=== PATIENT | female | born 1980 | race Caucasian/White ===

== ENCOUNTER 2016-10-06 15:34 | Inpatient (IN) | payer OTHER ==
[~2016-10-06] VITALS: Ht 162.6 cm; Wt 97.8 kg
[2016-10-06 16:53] VITALS: Ht 162.6 cm; Wt 97.8 kg
[2016-10-06] MEDS ORDERED: DOCO1CAP10 PO (17:10)
[2016-10-06] MEDS ORDERED: ALBU18002 XX (17:10)
[2016-10-06] MEDS ORDERED: DOCU-94 PO (17:10)
[2016-10-06] MEDS ORDERED: DIPH25CA65 PO (17:10)
[2016-10-06] MEDS ORDERED: FERR27TA5 PO (17:10)
[2016-10-06] MEDS ORDERED: PRENTAB26 PO (17:10)
[2016-10-06] MEDS ORDERED: LACTATED RINGER'S 1000ML 1,000 ML IV SCH (18:37)
[2016-10-06] MEDS ORDERED: LACTATED RINGER'S 1000ML 1,000 ML IV PRN (18:37)
[2016-10-06] MEDS ORDERED: BUTORPHANOL TARTRATE 1 MG/ML VIAL IV ONE (18:45)
[2016-10-06 18:54] LABS: HEMATOCRIT 35.5 % (37-47); MEAN CELL VOLUME 82.9 fL (80-100); MEAN CORPUSCULAR HEMOGLOBIN 28.7 pg (25-34); MEAN CORPUSCULAR HGB CONC 34.6 g/dl (32-36); MEAN PLATELET VOLUME 9.9 fL (7.4-10.4); PLATELET COUNT 196 K/uL (130-400); RED BLOOD COUNT 4.28 M/uL (4.2-5.4); WHITE BLOOD COUNT 14.04 K/uL (4.8-10.8)
[2016-10-06] MEDS ORDERED: PENICILLIN G POTASSIUM IV 6 MU in DEXTROSE 5% 250ML 250 ML IV ONE (19:00)
--- NOTE | 2016-10-06 19:13 | HISTORY & PHYSICAL EXAMINATION ---
DATE OF ADMISSION: 10/06/2016 LABOR AND DELIVERY ADMISSION HISTORY AND PHYSICAL CHIEF COMPLAINT: Contractions. HISTORY OF PRESENT ILLNESS: The patient is a 36-year-old G2, P0-0-1-0 at 39 weeks and 4 days of gestation who has been feeling contractions since this morning, they were every 7 minutes until 1:00 p.m., when they become more regular every 4-5 minutes, she presented to labor and delivery around 4:00 p.m. when her cervix was checked by myself, it was 1-2 cm, 50%, minus 3. She was having contractions every 3-5 minutes. She was observed for 2 hours and her cervix was checked by myself. She changed her cervix to 3 cm, 60%, minus 3 with bulging membranes. She has been feeling more contractions and they are more painful. She rates her pain 9/10 and she is asking for pain medication. She is being admitted now. She denies any leakage of fluid or vaginal bleeding. She denies fever, chills, chest pain, shortness of breath, headache, change in her vision, nausea, or vomiting. Her has been complicated by: 1. Rh negative. She received RhoGAM at 28 weeks. 2. GBS positive. PAST MEDICAL HISTORY: Fibromyalgia, she has been off medications since this ; vitamin D insufficiency and history of migraines and history of depression in the past, no medications for about 10 years and history of seasonal allergies. PAST SURGICAL HISTORY: Tonsillectomy and a foot surgery as a child. ALLERGIES: MONIK FLAVOR, SHELLFISH ALLERGY, IMITREX, AND IODINE. MEDICATIONS: vitamins once a day, iron gluconate once a day, Benadryl 25 mg as needed for itching, Tylenol 500 mg as needed for pain, pseudoephedrine 30 mg as needed for congestion. SOCIAL HISTORY: The patient denies smoking, alcohol or drug use. GYNECOLOGIC HISTORY: The patient has a history of chlamydia in the past treated and was negative during this . No history of gonorrhea, trichomoniasis or herpes. OBSTETRICAL HISTORY: This is her second . She miscarried in December 2015, 6 weeks. LABS: Her blood type is O negative, antibody screen positive, positive anti-D from RhoGAM, H\T\H is 12/36 and GC chlamydia cultures were negative. Rubella positive. RPR nonreactive. Hepatitis B surface antigen negative. First trimester screening was negative and second trimester AFP was negative. One hour Glucola was 106 mg per deciliter. Repeat H\T\H was and GBS culture was positive on 09/08/2016. PHYSICAL EXAMINATION: GENERAL: The patient is alert, oriented x3. She is in moderate distress with contractions. VITAL SIGNS: Stable, afebrile. CARDIOVASCULAR SYSTEM: S1, S2, RRR. LUNGS: Clear to auscultation bilaterally. ABDOMEN: Soft, gravid, Jordon 7-1/2 to 8 pounds. EXTREMITIES: Nontender and mild pretibial edema bilaterally symmetric. PELVIC: Cervix is 3 cm dilated, 60% effaced, minus 3 with bulging membranes, vertex presentation. heart rate 140s, category 1. Tocometer contractions every 2-5 minutes. ASSESSMENT AND PLAN: The patient is a 36-year-old G2, P0-0-1-0 at 39 weeks and 4 days of gestation presenting with regular contractions and desires pain medications and she changed her cervix during observation here. Her vital signs stable, afebrile. heart rate reassuring. GBS positive. Plan is to admit her, start IV fluids, start IV penicillin and expecting management for now. All questions were answered. SALVADORD
[2016-10-06] MEDS ORDERED: BUTORPHANOL TARTRATE 1 MG/ML VIAL ONE (21:51)
[2016-10-06] MEDS: PENICILLIN G POTASSIUM IV 3 MU in DEXTROSE 5% 100ML 100 ML IV PRN (22:53)
[2016-10-07] VITALS (13 sets, daily range): BP systolic 103–128; BP diastolic 55–76; PULSE 76–102; TEMP 36.6–36.9; O2SAT 16–97
[2016-10-07] MEDS ORDERED: BUPIVACAINE 0.25% 30 ML VIAL ONE (00:25)
[2016-10-07] MEDS ORDERED: FENTANYL CITRATE INJ 50 MCG/1 ML 2 ML VIAL ONE (00:25)
[2016-10-07] MEDS ORDERED: EpHEDrine SULFATE INJ 50 MG/ML AMP ONE (00:25)
[2016-10-07] MEDS ORDERED: FENTANYL 2MCG/ML ROPIV 1.25MG/ML 100ML BAG EPI ONE (00:25)
[2016-10-07] MEDS ORDERED: EpHEDrine SULFATE INJ 50 MG/ML AMP IV PRN ×2 (01:15→08:45)
[2016-10-07] MEDS ORDERED: NALOXONE HCL INJ 0.4 MG/1 ML VIAL/CARP IV PRN (01:15)
[2016-10-07] MEDS ORDERED: ONDANSETRON INJ 2 MG/ML 2 ML VIAL IV PRN ×2 (01:15→08:45)
[2016-10-07] MEDS ORDERED: FENTANYL 2MCG/ML ROPIV 1.25MG/ML 100ML BAG EPI PRN (01:15)
[2016-10-07] MEDS ORDERED: PROMETHAZINE HCL INJ 25 MG in SODIUM CHLORIDE 0.9% 50ML 50 ML IV PRN (01:15)
[2016-10-07] MEDS ORDERED: NALBUPHINE HCL INJ 10 MG/ML AMP IV PRN ×2 (01:15→08:45)
[2016-10-07] MEDS ORDERED: DiphenhydrAMINE HCL 50 MG/ML VIAL IV PRN ×2 (01:15→08:45)
[2016-10-07] MEDS ORDERED: LACTATED RINGER'S 1000ML 500 ML IV PRN ×3 (01:15→08:38)
[2016-10-07] MEDS ORDERED: NALOXONE HCL INJ 1 MG in SODIUM CHLORIDE 0.9% 1000ML 1,000 ML IV PRN ×5 (01:15→08:38)
[2016-10-07] MEDS: PENICILLIN G POTASSIUM IV 3 MU in DEXTROSE 5% 100ML 100 ML IV PRN ×2 (03:09→06:29)
[2016-10-07] MEDS ORDERED: OXYTOCIN 30 UNITS/500ML NSS IV PRN (06:30)
[2016-10-07] MEDS ORDERED: CITRIC ACID/SODIUM CITRATE 15 ML UDC ONE (06:43)
[2016-10-07] MEDS ORDERED: CEFAZOLIN SOD 1000MG/55 ML D5W IV STA (06:57)
[2016-10-07] MEDS ORDERED: CEFAZOLIN SOD 2000 MG in DEXTROSE 5% 50ML IV ONE (07:15)
[2016-10-07] MEDS ORDERED: LIDOCAINE/EPINEPHRINE 2% 1:200,000 20 ML SDV ONE (07:27)
[2016-10-07] MEDS ORDERED: ONDANSETRON INJ 2 MG/ML 2 ML VIAL ONE (07:27)
[2016-10-07] MEDS ORDERED: MoRPHine SULFATE PF 1 MG/ML 10 ML AMP/VIAL ONE (07:28)
[2016-10-07] MEDS ORDERED: PHENYLEPHRINE 100MCG/ML 5ML SYR ONE (07:31)
[2016-10-07] MEDS ORDERED: NALOXONE HCL INJ 0.08 MG in SYRINGE 1.8 ML IV PRN (08:38)
[2016-10-07] MEDS ORDERED: SODIUM CHLORIDE 0.9% 1000ML 1,000 ML IV PRN (08:38)
--- NOTE | 2016-10-07 08:38 | Anesthesia Procedure Note ---
Anesthesia Epidural Removal Nt Date & Time Oct 07, 2016 at 08:37 Vital Signs Pain Intensity: 9.0 Notes Mental Status: alert / awake / arousable, participated in evaluation Nausea / Vomiting: adequately controlled Pain: adequately controlled Airway Patency, RR, SpO2: stable & adequate BP & HR: stable & adequate Hydration State: stable & adequate Neuraxial Anesthesia: was administered Anesthetic Complications: no major complications apparent, pt satisfied with anesthetic care Epidural: removed without complications, with tip intact
[2016-10-07] MEDS ORDERED: NO NARCOTICS OR SEDATIVES SCH (08:45)
[2016-10-07] MEDS ORDERED: MoRPHine SULFATE PF 1 MG/ML 10 ML AMP/VIAL EPI PRN (08:45)
[2016-10-07] MEDS ORDERED: DC INTRASPINAL MORPHINE SCH (08:45)
[2016-10-07] MEDS ORDERED: NALOXONE HCL 0.4 MG/1 ML VIAL/CARP IV PRN (08:45)
[2016-10-07] MEDS ORDERED: MoRPHine SULFATE 2 MG/ML CARP IV PRN (08:45)
[2016-10-07] MEDS ORDERED: SENNA 8.6 MG TAB PO PRN (09:00)
[2016-10-07] MEDS ORDERED: LANOLIN OINT EXT PRN ×2 (09:00)
[2016-10-07] MEDS ORDERED: MAGNESIUM HYDROXIDE SUSP 30 ML UDC PO PRN (09:00)
[2016-10-07] MEDS ORDERED: SUPERCREAM 0.870 % 15GM JAR EXT PRN (09:00)
[2016-10-07] MEDS ORDERED: BENZOCAINE 20% AER SPR 82.5 GM CAN EXT PRN (09:00)
[2016-10-07] MEDS ORDERED: HYDROCORTISONE ACETATE 25 MG SUPP PR PRN (09:00)
[2016-10-07] MEDS: OXYTOCIN INJ 20 UNITS in LACTATED RINGER'S 1000ML 1,000 ML IV SCH ×2 (09:44→20:14)
--- NOTE | 2016-10-07 10:20 | [facility] Post Operative Brief Note ---
Immediate Operative Summary Operative Date Oct 07, 2016. Pre-Operative Diagnosis Prolonged Decelerations;Remote from delivery Post-Operative Diagnosis Same Procedure(s) Performed Primary Caesarean Section; Delivery of a live female child at [address] Kate Business Process Coordinator Surgeon(s) Dr. Amin; Irma Ramachandran RN Estimated Blood Loss 600 cc Findings Viable female infant, Apgars 9/9 Specimens placenta-exam cord blood arterial and venous gases Anesthesia epidural Complication(s) None Disposition L&D
--- NOTE | 2016-10-07 10:52 | OPERATIVE REPORT ---
DATE OF OPERATION: 10/07/2016 NOTE PREOPERATIVE DIAGNOSIS: The patient is a 36-year-old G2, P 0-0-1-0, at 39 weeks and 4 days of gestation, in active labor, meconium-stained amniotic fluid , recurrent prolonged heart rate decelerations and remote from delivery. POSTOPERATIVE DIAGNOSIS: Same. PROCEDURE: Primary low transverse with Pfannenstiel skin incision. SURGEON: Dr. Foss. SENIOR INSTRUMENTATION ENGINEER: Dr. Amin; Ariana Ramachandran RN. ESTIMATED BLOOD LOSS: 600 FLUIDS: See anesthesiology record. Urine output 100. ANESTHESIA: Epidural. COMPLICATIONS: None. FINDINGS: Baby was a viable female infant, Apgars 9/9, delivered at 0717. Weight 2745 grams. Normal uterus, fallopian tubes and ovaries. INDICATIONS: The patient is a 36-year-old G2, P 0-0-1-0, at 39 weeks and 4 days of gestation, who was admitted on 10/06/2016 for labor. She progressed to 5 cm dilatation whens she saw AROM'ed and found to have meconium stained fluid. heart tracings with recurrent prolonged decelerations to 60s-70s and remote from delivery. She was discussed the findings and recommended imminent delivery of the baby with section. She understood the risks of bleeding, infection, injury to the surrounding organs, bowels, bladder, ureters, blood transfusion and postop blood clots in legs or lungs, adhesion and scar formation. She signed an informed consent. DETAILS OF PROCEDURE: The patient was taken to the operating room where anesthesia was found to be adequate. She was placed in dorsal supine position with a leftward tilt. She was prepared and draped in usual sterile fashion. A Pfannenstiel skin incision was made, carried to the underlying layer of fascia with Bovie. The fascia was incised in the midline and incision extended laterally with the help of Newby scissors. Upper aspect of the fascial incision was then grasped with 2 Guru clamps, elevated. Underlying rectus muscles were dissected off sharply with Newby scissors. Then, lower aspect of the fascial incision was then grasped with 2 Gruu clamps, elevated. Underlying rectus muscles were dissected off sharply with Newby scissors. Rectus muscles were in midline, incision extended, and the peritoneum was entered bluntly with fingers. Peritoneal incision was extended superiorly and inferiorly with good visualization of the bladder. Bladder blade was inserted. Vesicouterine peritoneum was identified, grasped with pickups, entered sharply with Metzenbaum scissors. Bladder flap was created digitally and bladder blade was reinserted. Lower uterine segment was incised in a transverse fashion, incision extended laterally with the help of fingers, and then baby's head was delivered without difficulty. Shoulders were delivered with minimal traction. Mouth and nose were suctioned. Cord was clamped x2 and cut, it was a 3-vessel cord. Baby was handed off to the waiting circulation tender, Dr. Paul. Placenta was exteriorized, cleared off all clots and debris. Uterine incision was repaired with 0 Vicryl in a running locked fashion. A second imbricating layer was placed with 0 Vicryl in a running fashion. Good hemostasis was achieved. Uterus was returned to the abdomen and pelvis was irrigated with warm normal saline and suctioned. Incision was checked to be again hemostatic. Parietal peritoneum was reapproximated with 3-0 Vicryl in a running fashion. Rectus muscles were reapproximated with the same suture in a running fashion. Rectus fascia was reapproximated with 0 Vicryl in a running fashion. Subcuticular fat tissue was reapproximated with 2-0 chromic catgut in a running fashion. Skin was closed in marciano. The patient tolerated the procedure well. Sponge, lap, needle counts were correct x3. She was given 2 grams of cefazolin before surgery. She was taken to recovery room in stable condition. I attest to the content of the Intraoperative Record and any orders documented therein. Any exceptions are noted below. AMILCAR
[2016-10-07] MEDS: SIMETHICONE 80 MG CHEW PO SCH ×3 (12:57→20:14)
[2016-10-07] MEDS: KETOROLAC TROMETHAMINE 30 MG/ML VIAL IV. PRN ×2 (16:41→22:38)
[2016-10-07] MEDS ORDERED: LACTATED RINGER'S 1000ML 1,000 ML IV SCH (18:00)
[2016-10-07] MEDS: DOCUSATE SODIUM 100 MG CAP PO SCH (20:14)
[2016-10-08 00:30] VITALS: O2SAT 95
[2016-10-08] MEDS ORDERED: MEPERIDINE HCL 50 MG/ML CARP IV PRN (01:00)
[2016-10-08] MEDS ORDERED: KETOROLAC TROMETHAMINE 30 MG/ML VIAL IV. PRN (01:00)
[2016-10-08] MEDS ORDERED: PROMETHAZINE HCL INJ 25 MG in SODIUM CHLORIDE 0.9% 50ML 50 ML IV PRN (01:00)
[2016-10-08] MEDS ORDERED: DiphenhydrAMINE HCL 50 MG/ML VIAL IV PRN (01:00)
[2016-10-08] MEDS ORDERED: ONDANSETRON INJ 2 MG/ML 2 ML VIAL IV PRN (01:00)
[2016-10-08] MEDS ORDERED: MEPERIDINE HCL 75 MG/ML CARP IV PRN (01:00)
[2016-10-08 04:30] VITALS: BP 100/69; PULSE 96; TEMP 37; O2SAT 98
[2016-10-08 07:49] LABS: BASO % 0.1 %; BASO ABS # 0.01 K/uL (0-0.2); COMPLETE YES; EOS % 0.4 %; HEMATOCRIT 27.2 % (37-47); IG% 0.6 %; LYMPH ABS # 1.47 K/uL (1.2-3.4); MEAN CELL VOLUME 85.3 fL (80-100); MEAN CORPUSCULAR HEMOGLOBIN 28.5 pg (25-34); MEAN CORPUSCULAR HGB CONC 33.5 g/dl (32-36); MEAN PLATELET VOLUME 9.9 fL (7.4-10.4); MONO % 5.6 %; NEUT % 81.3 %; PLATELET COUNT 148 K/uL (130-400); RED BLOOD COUNT 3.19 M/uL (4.2-5.4); WHITE BLOOD COUNT 12.24 K/uL (4.8-10.8)
--- NOTE | 2016-10-08 08:01 | Surgery Progress Note ---
Surgery Progress Note Date of Service Oct 08, 2016. Subjective Post OP Day: 1 + ambulating, + diet (Tplerating Po food and meds), + feeling well, + flatus, + pain controlled, No SOB, No bowel movement, No chest pain, No complaints, No nausea, No using ENTRY LEVEL ACCOUNT MANAGER, No vomiting Objective Vital Signs: Date Time Temp Pulse Resp B/P Pulse Ox O2 Delivery O2 Flow Rate FiO2 10/08/16 04:30 20 98 10/08/16 04:30 37.0 96 20 100/69 98 Room Air 10/08/16 00:30 18 95 10/07/16 23:00 18 95 10/07/16 23:00 36.9 101 18 107/70 95 Room Air 10/07/16 23:00 95 Room Air 10/07/16 22:15 20 96 10/07/16 21:30 18 96 10/07/16 20:30 18 97 10/07/16 19:50 18 97 10/07/16 19:50 36.8 102 18 128/70 97 Room Air 10/07/16 18:30 18 94 10/07/16 17:30 16 96 10/07/16 16:30 18 96 10/07/16 16:30 36.6 88 18 118/76 96 Room Air 10/07/16 16:30 96 Room Air 10/07/16 15:30 18 94 10/07/16 13:30 96 16 10/07/16 12:30 95 16 10/07/16 11:30 96 16 10/07/16 11:30 36.7 76 20 103/55 96 Room Air 10/07/16 11:25 96 Room Air General Appearance: WD/WN, no apparent distress Head: normocephalic, atraumatic Neck: supple, no adenopathy, thyroid normal, no JVD, no carotid bruits, trachea midline Respiratory/Chest: chest non-tender, lungs clear, normal breath sounds, no respiratory distress, no accessory muscle use Cardiovascular: regular rate, rhythm, no edema, no gallop, no JVD, no murmur Abdomen: normal bowel sounds, non tender, non distended, soft, no organomegaly , no pulsatile mass Incision(s): clean, dry, intact, no erythema, no drainage Extremities: normal range of motion, non-tender, normal inspection, no pedal edema, no calf tenderness, normal capillary refill, pelvis stable Laboratory Results: Results Past 24 Hours Test 10/08/16 06:14 Range/Units White Blood Count 12.24 4.8-10.8 K/uL Red Blood Count 3.19 4.2-5.4 M/uL Hemoglobin 9.1 12.0-16.0 g/dL Hematocrit 27.2 37-47 % Mean Corpuscular Volume 85.3 80-100 fL Mean Corpuscular Hemoglobin 28.5 25-34 pg Mean Corpuscular Hemoglobin Concent 33.5 32-36 g/dl Platelet Count 148 130-400 K/uL Mean Platelet Volume 9.9 7.4-10.4 fL Neutrophils (%) (Auto) 81.3 % Lymphocytes (%) (Auto) 12.0 % Monocytes (%) (Auto) 5.6 % Eosinophils (%) (Auto) 0.4 % Basophils (%) (Auto) 0.1 % Neutrophils # (Auto) 9.96 1.4-6.5 K/uL Lymphocytes # (Auto) 1.47 1.2-3.4 K/uL Monocytes # (Auto) 0.68 0.11-0.59 K/uL Eosinophils # (Auto) 0.05 0-0.5 K/uL Basophils # (Auto) 0.01 0-0.2 K/uL RDW Standard Deviation 47.0 36.4-46.3 fL RDW Coefficient of Variation 15.1 11.5-14.5 % Immature Granulocyte % (Auto) 0.6 % Immature Granulocyte # (Auto) 0.07 0.00-0.02 K/uL Assessment & Plan c/sec day #1 pt doing well continue day #1 care
[2016-10-08] MEDS ORDERED: IBUPROFEN 600 MG TAB ONE (08:11)
[2016-10-08] MEDS ORDERED: NURSING VERBAL MED ORDER ONE (08:15)
[2016-10-08 08:25] VITALS: BP 121/79; PULSE 100; TEMP 36.8; O2SAT 95
[2016-10-08] MEDS: OXYCODONE/ACETAMINOPHEN 5-325 TAB PO PRN ×4 (08:26→21:39)
[2016-10-08] MEDS: FERROUS SULFATE 325 MG TAB PO SCH (08:27)
[2016-10-08] MEDS: DOCUSATE SODIUM 100 MG CAP PO SCH ×2 (08:27→19:47)
[2016-10-08] MEDS: SIMETHICONE 80 MG CHEW PO SCH ×4 (08:27→19:47)
[2016-10-08] MEDS: PRENATAL VITAMIN TAB PO SCH (08:27)
[2016-10-08] MEDS ORDERED: MEASLES, MUMPS & RUBELLA VIRUS VIAL SQ. ONE (09:00)
[2016-10-08] MEDS ORDERED: DIPHTHERIA/TETANUS/PERTUSSIS 0.5 ML SYR/VIAL IM. ONE (09:00)
[2016-10-08] MEDS: IBUPROFEN 600 MG TAB PO PRN ×3 (12:42→21:39)
[2016-10-08 16:45] VITALS: BP 122/75; PULSE 100; TEMP 36.5; O2SAT 97
[2016-10-08] MEDS ORDERED: BISACODYL 5 MG TABEC PO ONE (22:00)
[2016-10-08 23:45] VITALS: BP 126/84; PULSE 101; TEMP 36.6
[2016-10-09] MEDS: IBUPROFEN 600 MG TAB PO PRN ×5 (05:30→23:58)
[2016-10-09] MEDS: OXYCODONE/ACETAMINOPHEN 5-325 TAB PO PRN ×5 (05:30→23:58)
[2016-10-09 06:56] LABS: HEMATOCRIT 26.2 % (37-47)
[2016-10-09 08:00] VITALS: BP 129/85; PULSE 90; TEMP 36.7; O2SAT 96; O2SAT 97
[2016-10-09] MEDS: DOCUSATE SODIUM 100 MG CAP PO SCH ×2 (08:16→20:00)
[2016-10-09] MEDS: PRENATAL VITAMIN TAB PO SCH (08:16)
[2016-10-09] MEDS: FERROUS SULFATE 325 MG TAB PO SCH (08:16)
[2016-10-09] MEDS: SIMETHICONE 80 MG CHEW PO SCH ×4 (08:17→20:01)
[2016-10-09] MEDS ORDERED: BISACODYL 10 MG SUPP PR PRN (09:00)
--- NOTE | 2016-10-09 09:29 | Surgery Progress Note ---
Surgery Progress Note Date of Service Oct 09, 2016. Subjective Post OP Day: 2 + ambulating, + diet (Tolerating Po food and meds), + feeling well, + flatus, + pain controlled, No SOB, No bowel movement, No chest pain, No complaints, No nausea, No using ZIPPER REPAIRER, No vomiting Objective Vital Signs: Date Time Temp Pulse Resp B/P Pulse Ox O2 Delivery O2 Flow Rate FiO2 10/09/16 08:00 97 Room Air 10/09/16 08:00 36.7 90 16 129/85 96 Room Air 10/08/16 23:45 36.6 101 18 126/84 Room Air 10/08/16 23:45 Room Air 10/08/16 16:45 36.5 100 18 122/75 97 Room Air 10/08/16 16:45 97 Room Air General Appearance: WD/WN, no apparent distress Head: normocephalic, atraumatic Neck: supple, no adenopathy, thyroid normal, no JVD, no carotid bruits, trachea midline Respiratory/Chest: chest non-tender, lungs clear, normal breath sounds, no respiratory distress, no accessory muscle use Cardiovascular: regular rate, rhythm, no edema, no gallop, no JVD, no murmur Abdomen: normal bowel sounds, non tender, non distended, soft, no organomegaly , no pulsatile mass Incision(s): clean, dry, intact, no erythema, no drainage Extremities: normal range of motion, non-tender, normal inspection, no pedal edema, no calf tenderness, normal capillary refill, pelvis stable Laboratory Results: Results Past 24 Hours Test 10/09/16 06:03 Range/Units Hemoglobin 8.7 12.0-16.0 g/dL Hematocrit 26.2 37-47 % Assessment & Plan c/sec day #2 pt doing well continue day #2 care disch tomorrow c/sec day #2 pt doing well anticipate disch tomorrow
[2016-10-09 15:20] VITALS: BP 125/84; PULSE 89; TEMP 36.5
--- NOTE | 2016-10-09 18:33 | Progress Note ---
Progress Note S: Called to evaluate pt with "Redness around incision". no chills , No fever O; VSS afebrile Lung CTA bilat Ht; Si S@ R?R/R ABD; + BS. Incison is erythematous. Ext;No C/C/E A/p s/p Emergent c/sec for bradycardia Day #2 Afebrile X 2 days post op cellulitis Rx for Keflex started
[2016-10-09 19:35] VITALS: BP 130/84; PULSE 83; TEMP 36.6; O2SAT 98
[2016-10-09] MEDS: CEPHALEXIN MONOHYDRATE 500 MG CAP PO SCH (20:01)
[2016-10-09 23:20] VITALS: BP 133/86; PULSE 82; TEMP 36.6; O2SAT 98
[2016-10-10 03:55] VITALS: BP 126/86; PULSE 80; TEMP 36.4; O2SAT 98
[2016-10-10] MEDS: IBUPROFEN 600 MG TAB PO PRN ×3 (03:55→11:51)
[2016-10-10] MEDS: OXYCODONE/ACETAMINOPHEN 5-325 TAB PO PRN ×3 (03:55→11:50)
[2016-10-10] MEDS ORDERED: KFL500 PO (07:12)
[2016-10-10] MEDS ORDERED: OXYC-57 PO (07:12)
[2016-10-10] MEDS ORDERED: MTR600X PO (07:12)
--- NOTE | 2016-10-10 07:18 | Discharge Instructions ---
Discharge Instructions Admission Reason for Admission: Check Labor Discharge Discharge Diagnosis / Problem: s/p section Discharge Goals Goal(s): Routine recovery after Activity Recommendations Activity Limitations: per Instructions/Follow-up section . Instructions / Follow-Up Instructions / Follow-Up ACTIVITY RECOMMENDATIONS: * Gradual return to full activity over the next 2-3 weeks. * No lifting - nothing heavier than baby over the next 2-3 weeks. * Do not engage in vigorous exercise, sexual activity or sports until cleared by your physician. * Do not drive or operate any motorized equipment until cleared by your physician. * You may shower/bathe daily. BREAST CARE: If you are not breast feeding: * Wear a supportive bra 24 hours a day for one to two weeks. * Avoid stimulating your breasts and nipples as much as possible during the first few weeks after delivery. * When taking a shower, have the warm water hit your back, not breasts. * When your breasts feel full, apply ice packs. Usually three to four times a day helps ease the discomfort. * Take a mild pain medication (Tylenol/Motrin) when you are uncomfortable. If breast feeding: * Use breast milk to lubricate nipples. Lansinoh cream may be used for sore nipples. You do not need to remove cream prior to breast feeding. If using a different brand of cream, check the label for directions regarding removal of cream prior to nursing. * Wear a supportive bra. * If having problems with breasts or breast feeding, call a strategic sourcing consultant or your health care provider. OVER THE COUNTER MEDICATION: * For discomfort or pain, you may use Acetaminophen (Tylenol), Ibuprofen (Advil ), or Naproxen (Aleve) following the package directions. * For constipation you may use Colace following the package directions. SPECIAL CARE INSTRUCTIONS: When you are discharged from the hospital, it is important for you to follow the instructions listed below: * During the first week at home, you should be able to care for yourself and your baby. In addition, the usual light household activities are encouraged. * Limit your activities to the way you feel. Do not try to clean the house or move furniture. Be sensible. * If you actively engage in sports and have done so up until the time of your delivery, you may resume these activities as soon as you feel able. This may take up to one month or even longer. Use good judgment. * Continue to take your vitamins for at least six weeks after the of your baby. * Your diet need not be limited unless you were on a special diet before your delivery. Breast-feeding mothers need around 2500 calories per day and at least 64-80 ounces of fluid per day (8 to 10 glasses). * You should eat foods from the four major food groups. Crash diets or fad diets are to be avoided. Eating lean meats, fresh fruits and vegetables, low-fat dairy products, high fiber foods and a regular exercise program, will help you get back to your pre- weight without putting your health at risk. * Constipation is sometimes a problem after delivery. Take a mild laxative as needed. If breast feeding, Milk of Magnesia is acceptable to use. You may use a suppository or Fleets enema if no episiotomy. * A daily shower or tub bath is suggested. Be sure to thoroughly and gently dry the perineum. * A bloody vaginal discharge will usually continue until around four weeks post . A small amount of bleeding may continue for as long as six weeks. Vaginal discharge changes from the bright red bleeding after delivery to pink then brownish and finally yellowish-pink before becoming white and disappearing. * Bleeding may increase with activity. Your first period may come in 4-8 weeks. If you are breast feeding, your period may be delayed even longer. * [place] (sex) can begin whenever both you and your partner feel comfortable and do not have any form of genital infection. It is recommended that you wait at least six weeks for internal and external healing to occur. If you have questions, please talk to your health care practitioner. A condom should be used to prevent infection and . * Foreplay, gentle intercourse and lubrication is very important the first several times to prevent pain. A water-based lubricant such as K-Y jelly or Astroglide may be used. * Tampons and/or Douching should be avoided until after six weeks check-up. * If you have RH negative blood and your baby is RH positive, you will receive RHOGAM by injection prior to discharge. The nurse will give you a card to keep with you that has the date and place that you received RHOGAM after delivery. * During your care, you had a Rubella screen done to check for the presence of rubella antibodies in your blood. If your test was negative, you will receive a Rubella vaccine prior to discharge. This vaccine may cause a fever, soreness at the injection site and flu-like symptoms. If these symptoms persist, notify your health care practitioner. is not advised for three months after a Rubella vaccine. * Verbalizes understanding of car seat law as reviewed with patient nursing. * Car Seat hand-out given and reviewed with patient by nursing. * Shaken baby information reviewed with patient by nursing. Call you doctor if: * Heavy bleeding (saturating several pads an hour) or passing clots the size of your fist. * A fever >101 degrees F (38.3 degrees C) on two occasions four hours apart and /or chills. * Unusual pain in the pelvic or vaginal areas. Pain should improve each day . * Call the doctor for any increased redness, drainage or swelling around the incision and any pain unrelieved by prescribed pain medication. * Any signs or symptoms of phlebitis (possible blood clots forming in the veins ): leg pain, warm, red or swollen area on leg. * "Baby Blues" lasting longer than two weeks. If you have any questions or concerns, call your health care practitioner at . FOLLOW-UP VISIT: * Incision check (staple removal) in 1 week. Please call doctor's office at to set up appointment. * Please call the office at to schedule a 6 week examination. It is important you keep this appointment. * It is important for you to make arrangements for either yearly or twice yearly check-ups thereafter. Current Hospital Diet Patient's current hospital diet: Regular OB Diet Discharge Diet Recommended Diet: Regular OB Diet Procedures Procedures Performed: Primary Caesarean Section; Delivery of a live female child at 0717 Pending Studies Studies pending at discharge: no Medical Emergencies . Who to Call and When: Medical Emergencies: If at any time you feel your situation is an emergency, please call [phone] immediately. . Non-Emergent Contact Non-Emergency issues call your: Primary Care Provider, Foundry Tender . . "Provider Documentation" section prepared by Vince Markham. VTE Core Measure Inpt VTE Proph given/why not?: Treatment not indicated
--- NOTE | 2016-10-10 07:21 | OB/GYN Progress Note ---
DENTAL CERAMIST Progress Note Date of Service Oct 10, 2016. Subjective conversation w/ patient Ambulation: ambulating normally Voiding: no voiding problems Passing Gas: Yes Diet Tolerance: Regular Diet Lochia: Small Pain: 12/09 Notes: Doing well, no concerns. Would like to go home today. Was started on keflex yesterday for possible cellulitis of incision and has been stable. Will continue with oral keflex at home. F/u in 1 week for incision check. Objective Vital Signs Date Time Temp Pulse Resp B/P Pulse Ox O2 Delivery O2 Flow Rate FiO2 10/10/16 03:55 36.4 80 16 126/86 98 Room Air 10/09/16 23:20 98 Room Air 10/09/16 23:20 36.6 82 20 133/86 98 Room Air 10/09/16 19:35 36.6 83 20 130/84 98 Room Air 10/09/16 15:20 36.5 89 20 125/84 10/09/16 08:00 97 Room Air 10/09/16 08:00 36.7 90 16 129/85 96 Room Air Physical Exam General Appearance: WELL-APPEARING Respiratory/Chest: chest non-tender, lungs clear Cardiovascular: regular rate, rhythm Abdomen: normal bowel sounds, soft Fundus: Firm Incision Description: Clean, Dry & Intact, Erythema Extremities: normal range of motion, non-tender, no calf tenderness Assessment and Plan Post-Op Day Number: 3 Continue Routine Care: -D/C home today -F/U in 1 week for incision check/staple removal.
[2016-10-10 07:30] VITALS: BP 125/86; PULSE 81; TEMP 36.3; O2SAT 97
[2016-10-10] MEDS: CEPHALEXIN MONOHYDRATE 500 MG CAP PO SCH ×2 (08:14→11:50)
[2016-10-10] MEDS: PRENATAL VITAMIN TAB PO SCH (08:14)
[2016-10-10] MEDS: SIMETHICONE 80 MG CHEW PO SCH ×2 (08:15→11:50)
[2016-10-10] MEDS: FERROUS SULFATE 325 MG TAB PO SCH (08:15)
[2016-10-10] MEDS: DOCUSATE SODIUM 100 MG CAP PO SCH (08:15)
[2016-10-10 11:40] VITALS: BP_DIAS 86; PULSE 81; TEMP 36.3
--- NOTE | 2016-10-21 02:23 | DISCHARGE SUMMARY ---
DETAILS OF ADMISSION: The patient is a 36-year-old G2, P0-0-1-0 at 39 weeks and 4 days of gestation who was admitted on 10/06/2016 for labor. She progressed to 5 cm dilatation spontaneously by herself. Artificial rupture of membranes was done and a meconium-stained fluid was observed. After that, heart rate was having recurrent prolonged decelerations to 60s-70s and the patient was remote from delivery. Recommended section for imminent delivery of the baby. She had primary low transverse with Pfannenstiel skin incision on 10/07/2016. Baby was delivered at 0717 and Apgars 9/9. See dictated op note for details. On postop period, the patient did well. Vital signs stable, afebrile. Urine output was good. Pain was under control with medications. On postop day #1, the patient was doing well, tolerating a regular diet, passing gas. Pain was under control with oral medications. Vital signs stable, afebrile. Urine output was good. Physical exam was unremarkable. Incision was clean, dry and intact. H\T\H was 9.1/27.2. The patient was continuously monitored. On postop day #2, the patient was doing well. She was on a regular diet, passing gas. Pain was under control with medications. Vital signs stable, afebrile. Incision was clean, dry and intact. H\T\H was 8.7/26.2. On postop day #3, the patient was doing well, no complaints. She wanted to go home. She was on a regular diet, ambulating, passing gas and she was started on Keflex for possible cellulitis of incision. She has been afebrile. Incision was clean, dry and intact with mild erythema. She was discharged home on 10/10/2016. Discharge instructions were given. Prescriptions were written for pain as well as antibiotic. She is to be follow up in the office in 3 days for staple removal and incision check. All questions were answered. AMILCAR
== END 2016-10-10 12:03 | disposition home or self-care (01) | DRG 766 ==
LOC: C.OPB 15:34 → C.LD 15:34 → C.OPB 18:38 → C.OBG 10-07 11:38
PROVIDERS: ADMIT Obstetrics & Gynecology; ATTEND Obstetrics & Gynecology
PROC: 10D00Z1 Extraction of Products of Conception, Low, Open Approach (ICD-10-PCS; principal; 2016-10-07 06:53)
DX: O76 Abnormality in fetal heart rate and rhythm complicating labor and delivery (principal); O99.89 Other specified diseases and conditions complicating pregnancy, childbirth and the puerperium; O99.820 Streptococcus B carrier state complicating pregnancy; Z37.0 Single live birth; Z3A.39 39 weeks gestation of pregnancy; M79.7 Fibromyalgia

== ENCOUNTER → 2017-04-07 | Outpatient (CLI) | payer OTHER ==
[~2017-04-07] MED LIST: ALBU18002 XX; DIPH25CA65 PO; DOCO1CAP10 PO; DOCU-94 PO; FERR27TA5 PO; KFL500 PO; MTR600X PO; OXYC-57 PO; PRENTAB26 PO
--- NOTE | 2017-04-08 05:45 | PAP/PSG TECHNICIAN REPORT ---
[facility] Chef Kitchen Manager Polysomnogram Report Study name: None Report date: 04/08/2017 Study date: 04/07/2017 Referring Physician: Freda Woodard M.D. Name: WYATT BROOKS Interpreting Physician: Sayda Woodard M.D. Date of : 1980 Chef Kitchen Manager: MONALISA Tracy. Sex: Female Age: 36 StudyType: PSG Weight: 211 lbs Height: 36 years, Height 5' 5" Neck Circum:15.5inches BMI: 35.11 Medications: Topamax 25mg, Midrin [id number], Claritin 10mg, Ativan 1mg, Flonase 50mcg/act, DHA 200mg, Probiotic, Tylenol, Colace, 27-1mg Patient History Study started on room air with no ETCO2 monitoring in room 38. 36 yr old female here tonight for a diagnostic psg. She complains of EDS and loud snoring. She said she has always required a lot of sleep. Her ESS=17/24. Neck circ=15.5inches. Parameters Monitored NPSG: E1-M2, E2-M1, Fp1-M2, Fp2-M1, F3-M2, F4-M2, F4-M1, C3-M2, C4-M2, C4-M1, O1-M2, O2-M2, O2-M1, T3-M2, T4-M1, P3-M2, P4-M1, CHIN1, CHIN2, HR, EKG, Legs, PFLOW, SNOR, FLOW, CFLOW, Tidal Volume, THOR, ABDO, SpO2, PLTH, CPRESS, ETCO2 Wave, ETCO2, pH Sleep Architecture Sleep Stages Time at Lights Off 10:00:42 PM STAGES Time (min.) TST (%) Time at Lights On 5:38:42 AM Wake 65.5 -- Total Recording Time (TRT) 458.00 min. N1 26.5 7 Total Sleep Period (TSP) 434.0 min. N2 219.5 56 Total Sleep Time (TST) 392.0min. N3 65.5 17 Awake Time 65.5 min. REM 80.5 21 Wake after Sleep Onset 42.0 min. Sleep Efficiency (SE) 86 % Sleep Onset Latency (MONTY) 24.0 min. Number of Stage 1 Shifts None Awakenings 18 Stage Changes 88 Number of REM periods 4 REM 80.5 21 REM Latency 195.5 min. NREM 311.5 79 Body Position Analysis Supine Right Left Side Prone Vertical Total Sleep Time (min.) 213.5 157.9 46.9 204.80 0.0 0.0 Total Sleep Time (%) 48% 40% 12% 52 0% N/A% Total Sleep Time REM (min.) 55.0 25.5 0.0 None 0.0 0.0 Total Sleep Time NREM (min.) 132.2 132.4 46.9 None 0.0 0.0 Intermittent Wake (min.) 26.3 19.4 19.8 None 0.0 0.0 Total Sleep Period (%) 46% None None None None None Arousals Myoclonus (PLM) * Events Count Index Events Count Index Spontaneous 18 3 Events Awake (PLMW) 48 44.0 Respiratory 0 0.0 Events Asleep w/ Arousal (PLMA) 10 1.5 PLM 10 2 Events Asleep w/o Arousal (PLMS) 33 5.1 Snoring 8 1 Total Asleep 43 6.6 Total 35 5 Total 91 12 Respiratory Analysis * CA OA MA CH H RERA Total Count 0 0 0 0 4 0 4 Index 0.0 0.0 0.0 0 0.6 0 0.6 Mean Duration 0.0 0.0 0.0 0.00 15.2 0.0 15.2 Longest Duration 0.0 0.0 0.0 0.00 0.0 0.0 21.7 Respiratory Event Summary Total Supine ~Supine Right Left Prone REM NREM Apneas Count 0 0 0 0 0 N/A 0 0 Index 0.0 0 0 0.0 0.0 N/A 0 0 Hypopneas (4% Desat) Count 4 1 3 3 0 N/A 1 3 Index 0.6 0.3 1 1.1 0.0 N/A 0.7 0.6 Apneas & All Hypopneas Count 4 1 3 3 0 N/A 1 3 Index 0.6 0 1 1 0 N/A 0.7 0.6 Respiratory Events (Missile Pad Mechanic+All Hyp+RERA) Count 4 1 3 3 0 N/A 1 3 Index 0.6 0 1 1.1 0.0 N/A 0.7 0.6 Respiratory Related Arousal Count 0 1 0 0 0 N/A 0 0 Index 0.0 0 0 0 0 N/A 0 0 Snoring Analysis Supine Right Left Prone REM NREM Total Snore duration 2.5 min Snores count 74 41 3 N/A 3 115 118 Snore mean duration 1.3 Sec Snores index 24 16 4 N/A 2.2 22.2 18.1 TST with snoring (%) 0.6% Desaturation Event Summary: Minimum %SpO2 Event Count Mean/Min/Max Duration(sec.) Desaturation Index % Time In Bed > 90 14 27.1 / 5.8 / 48.8 1.9 97.2 86 - 90 0 N/A 0.0 2.8 81 - 85 0 N/A 0.0 0.0 76 - 80 0 N/A 0.0 0.0 71 - 75 0 N/A 0.0 0.0 66 - 70 0 N/A 0.0 0.0 61 - 65 0 N/A 0.0 0.0 56 - 60 0 N/A 0.0 0.0 51 - 55 0 N/A 0.0 0.0 < 50 0 N/A 0.0 0.0 Total REM NREM Awake <50% 0.0 min. 0.0 min. 0.0 min. 0.0 min. 51 - 60% 0.0 min. 0.0 min. 0.0 min. 0.0 min. 61 - 70% 0.0 min. 0.0 min. 0.0 min. 0.0 min. 71 - 80% 0.0 min. 0.0 min. 0.0 min. 0.0 min. 81 - 90% 12.6 min. 4.9 min. 7.0 min. 0.6 min. 91 - 100% 437.3 min. 75.6 min. 304.5 min. 57.3 min. Average 93 93 93 94 Minimum SpO2 89 89 89 89 Desaturation Event Index 1.8 2.2 1.3 3.7 # Desat. Events below 89% N/A N/A N/A N/A Time(%) with Saturation below 89% 0.0 0.0 0.0 0.0 Time(min.) with Saturation below 89% 0.0 0.0 0.0 0.0 Time (mins) REM (mins) NREM (mins) % of TST SpO2 Below 90% 6 1 N5 0.4 SpO2 Below 88% 0 0 0 0 Heart Rate Analysis Min (bpm) Max (bpm) Average (bpm) Awake 72 109 87 NREM 66 108 81 REM 70 97 82 Overall 66 108 81 Supplemental O2 Values Minimum O2 level: None Value Start Time End Time Chef Kitchen Manager Comments Mrs. Brooks slept in the right, left and supine positions. No cardiac arrhythmia noted. Some leg movements noted. No bruxism noted. Snoring was noted and scored as a 1 on a scale of 1 through 5. (0=no snoring, 5=snoring loud enough to be heard through a closed door or down the damon way) She awoke to use the restroom 1 time during the night. She stated that she was a little more restless than usual. The final report will be interpreted and signed by a sleep physician. The completed physician report will then be placed in the patient medical record. Therapy (cm H2O) 0 TIB (min.) 457.5 TST (min.) 392.0 Sleep Onset (min.) 24.0 REM Onset From Sleep (min.) 195.5 Sleep Efficiency % 86 Wakefulness (%) 14 Wakefulness (min.) 65.5 NREM 1 (%) 7 NREM 1 (min.) 26.5 NREM 2 (%) 56 NREM 2 (min.) 219.5 NREM 3 (%) 17 NREM 3 (min.) 65.5 REM (%) 21 REM (min.) 80.5 # Arousals 35 Arousal Index 5 # Snore 118 Snore Index 18.1 AHI 0.6 AHI Supine 0 AHI Non-Supine 1 NREM AHI 0.6 REM AHI 0.7 RDI 0.6 # Obstructive Apnea 0 # Central Apnea 0 # Mixed Apnea 0 # Hypopneas 4 RERAs 0 Total Respiratory Events 4 Time Below SpO2 89% (min.) 0.0 Mean NREM SpO2 (%) 93 Mean REM SpO2 (%) 93 Mean Sleep SpO2 (%) 93 Min NREM SpO2 (%) 89 Min REM SpO2 (%) 89 Position Supine (min.) 213.5 Position Non-supine (min.) 204.8 LM Index Sleep 6.6 LM Index NREM 7.5 LM Index REM 3.0 Mean Heart Rate (bpm) 81 Min Heart Rate (bpm) 66
--- NOTE | 2017-04-25 10:26 | POLYSOMNOGRAPH REPORT ---
REFERRING PERSON: Dr. Michael Woodard. HISTOLOGIST: Jhoana Hernandez. Ms. Brooks is a 36-year-old female who complains of excessive daytime sleepiness and loud snoring. She states she always has required a lot of deep sleep. Her [place] sleepiness scale score on the evening of this study is 17. BMI is 35.11. Following the technical and digital specifications of the [place] [employer] (AASM) a standard diagnostic polysomnogram was performed monitoring EEG, EOG, EMG (chin and leg deviations), oxygen saturation, body position, digital video, respiratory effort and airflow. The sleep Stage and event scoring was based on the AASM Manual for the Scoring of Sleep and Associated Events 2007 edition. Apneas are defined as a drop in the peak thermal sensor excursion by >90% of baseline for at least 10 seconds. Hypopneas were scored using the 4% oxygen desaturation rule (4A-Medic[employer]) and a decrease in the nasal pressure excursions by >30% of baseline for at least 10 seconds. Respiratory effort-related arousal (RERA's) is defined as a sequence of breaths lasting at least 10 seconds characterized by increasing respiratory effort or flattening of the nasal pressure waveform leading to an arousal from sleep when the sequence of breaths does not meet criteria for an apnea or hypopnea. Apnea Hypopnea index (AHI) is defined as the number of apneas and hypopneas occurring in an hour of sleep. Respiratory disturbance index (RDI) is defined as the number of apneas, hypopneas, and RERA's occurring in an hour of sleep. Ms. Brooks total sleep period time was 434 minutes. Total sleep time was 392 minutes. Sleep efficiency was 86%. Latency to sleep onset was 24 minutes with wake after sleep onset of 42 minutes. Total non-REM sleep time was 311.5 minutes. She spent 7% of that time in N1 sleep, 56% in N2 sleep and 17% in N3 sleep. REM latency was 195.5 minutes. Total REM sleep time was 80.5 minutes or 21% of total sleep time. There were 35 cortical arousals from sleep. Eighteen of these arousals were spontaneous, 10 were due to periodic limb movements of sleep and 8 were due to snoring. There were 43 periodic limb movements noted on this test. Limb movement index was 6.6. Limb movement with arousal index was 1.5. There were no central, obstructive or mixed apneas on this test. There were 4 hypopneas and no RERA. Apnea-hypopnea index was normal at 0.6. There were 118 snoring events recorded. Total sleep time with snoring was 0.6%. Mean saturation was 93% and there were no desaturations less than 89%. There was no cardiac ectopy noted on this test. Heart rates ranged from a low of 66 beats per minute to a high of 108 beats per minute during sleep. IMPRESSION AND PLAN: 36-year-old female without evidence of sleep disordered breathing, nocturnal hypoxemia, bruxism, parasomnia or clinically significant periodic limb movements of sleep on this test.
== END | disposition home or self-care (01) ==
LOC: C.NEUR 21:00
PROVIDERS: ATTEND Family Medicine
DX: R06.83 Snoring (principal); G47.10 Hypersomnia, unspecified; E66.9 Obesity, unspecified

== ENCOUNTER 2021-09-20 16:41 | Inpatient (IN) ==
[~2021-09-20 16:41] MED LIST changes: -ALBU18002 XX; +CITRIC ACID/SODIUM CITRATE 15 ML UDC PO SCH; -DIPH25CA65 PO; -DOCO1CAP10 PO; -DOCU-94 PO; -FERR27TA5 PO; -KFL500 PO; -MTR600X PO; -OXYC-57 PO; -PRENTAB26 PO
[2021-09-20] MEDS ORDERED: LACTATED RINGER'S 1,000 ML IV SCH ×2 (17:00→21:03)
--- NOTE | 2021-09-20 17:24 | History & Physical Bridge Note ---
Date of Service September 20, 2021 History & Physical Bridge Note I have examined the patient, reviewed the History & Physical and in the interval since the performance of the History & Physical I have noted the following changes of clinical significance: no changes noted
[2021-09-20 17:28] LABS: Basophils # (auto) 0.01 K/uL (0-0.2); Basophils % (auto) 0.1 %; Eosinophils # (auto) 0.01 K/uL (0-0.5); Eosinophils % (auto) 0.1 %; Hematocrit (blood only) 30.7 % (37-47); Hemoglobin 10.3 g/dL (12.0-16.0); Immature Granulocytes % (auto) 1.7 %; Lymphocytes # (auto) 1.39 K/uL (1.2-3.4); Mean Corpuscular Hemoglobin 28.9 pg (25-34); Mean Corpuscular Hgb Conc 33.6 g/dL (32-36); Mean Platelet Volume 9.7 fL (7.4-10.4); Monocytes # (auto) 0.33 K/uL (0.11-0.59); Monocytes % (auto) 2.9 %; Neutrophils % (auto) 83.2 %; Platelet Count 211 K/uL (130-400); RDW Coefficient of Variation 15.6 % (11.5-14.5); RDW Standard Deviation 48.2 fL (36.4-46.3); Red Blood Count 3.57 M/uL (4.2-5.4); White Blood Count 11.54 K/uL (4.8-10.8)
--- NOTE | 2021-09-20 17:36 | History & Physical Report ---
Date of Service September 20, 2021 Assessment & Plan (1) Hx of section: (2) Sterilization: History of Present Illness Chief Complaint: Spontaneous rupture of membranes Primary Care Provider: Felipe Shen MD 41 F [id number] at 38.5 weeks admitted to L&D after seen in office today and confirmed to have SROM with clear fluid. Patient is set up for a repeat C- section with BTL. Allergies Allergy/AdvReac Type Severity Reaction Status Date / Time egg Allergy Severe SHORTNESS Verified 09/14/21 15:34 OF BREATH Iodinated Contrast Media Allergy Severe ANAPHYLAXIS Verified 09/14/21 15:34 onion Allergy Severe SHORTNESS Verified 09/14/21 15:34 OF BREATH shellfish derived Allergy Severe HIVES Verified 09/14/21 15:34 sumatriptan Allergy Severe ANAPHYLAXIS Verified 09/14/21 15:34 srikanth Allergy Intermediate RASH Verified 09/14/21 15:34 CILANTRO Allergy Intermediate SHORTNESS Uncoded 09/14/21 15:34 OF BREATH Home Medications Medication Instructions Recorded Confirmed Type PNV 153-FA 400 mcg-om3 35 mg-dha 2 tab PO BID 01/23/21 09/18/21 History 25 mg-epa 5 mg-fish oil chew tablet ( Gummies) acetaminophen 325 mg capsule 325 mg PO QID PRN 01/23/21 09/17/21 History (Tylenol) cetirizine 10 mg tablet (Zyrtec) 10 mg PO PM 01/23/21 09/17/21 History cyanocobalamin (vitamin B-12) 1,000 mcg PO QAM 01/23/21 09/17/21 History 1,000 mcg tablet fluticasone propionate 50 1 spray INTRANASAL DAILY PRN 01/23/21 09/17/21 History mcg/actuation nasal spray,suspension polyethylene glycol 3350 17 gram 17 g PO DAILY PRN 01/23/21 09/18/21 History oral powder packet (Miralax) aspirin 81 mg capsule 81 mg PO HS 09/14/21 09/17/21 History bupropion HCl 150 mg 24 hr tablet, 150 mg PO QAM 09/14/21 09/17/21 History extended release (Wellbutrin XL) magnesium oxide 400 mg PO QAM 09/14/21 09/17/21 History labetalol 100 mg tablet 100 mg PO BID #30 tab 09/18/21 Rx Patient History Medical History Fibromyalgia GERD (gastroesophageal reflux disease) GERD with and had ulcer as child Hypertension hx of and no meds at present Hypothyroidism hx of and no meds at present Surgical History History of incision and drainage age [age] in right ankle Hx of section Hx of tonsillectomy Social History Smoking Status: Never smoker Second Hand Exposure: No; Hx Alcohol Use: No Hx Substance Use: No Preferred Language: Indonesian Communication Ability: Effective Steam Fitter Helper Required: No Beliefs That Will Affect Care: None marital status: Current Living Situation: Spouse and Family Current Living Situation Comment: and daughter Feels Safe at Home: Yes Assistive Devices: None OB History C/S in past INK GRINDER History 4 prior miscarriages Review of Systems All systems reviewed & are unremarkable except as noted in HPI & below Physical Exam Constitutional: WD/WN, vitals as above Eyes: PERRL, conjunctivae normal, anicteric sclerae Respiratory: normal respiratory effort, lungs clear to auscultation Cardiovascular: Rate/Rhythm: regular rate Skin: no rashes, warm and dry Neurologic: patellar DTR's 2+ bilat, sensation intact Psychiatric: A+Ox3, euthymic affect Genitourinary: OB Exam Abdomen: + breech OB Exam Monitor Tracing: + external FHT monitor used, + external uterine monitor used, + category I and + normal FHT variability Results & Data ([facility]) Vital Signs (Past 12 Hours) Vital Signs Pulse Pulse Ox 09/20/21 17:04 83 97 09/20/21 16:59 77 97 09/20/21 16:54 86 96 09/20/21 16:49 88 97 09/20/21 16:44 85 98 Laboratory Results 09/20/21 17:12 WBC 11.54 H RBC 3.57 L Hgb 10.3 L Hct 30.7 L MCV 86.0 MCH 28.9 MCHC 33.6 RDW Std Deviation 48.2 H RDW Coeff of Sherrell 15.6 H Plt Count 211 MPV 9.7 Immature Gran % (Auto) 1.7 Neut % (Auto) 83.2 Lymph % (Auto) 12.0 Forrest % (Auto) 2.9 Eos % (Auto) 0.1 Baso % (Auto) 0.1 Neut # (Auto) 9.60 H Lymph # (Auto) 1.39 Forrest # (Auto) 0.33 Eos # (Auto) 0.01 Baso # (Auto) 0.01 Immature Gran # (Auto) 0.20 H Diagnostic Findings Covid is pending Code Status & VTE Plan VTE Prophylaxis Plan VTE Prophylaxis will be ordered: Yes Monitoring External Monitor Cat 1
--- NOTE | 2021-09-20 17:38 | Anesthesiology Consultation ---
Date of Service September 20, 2021 Assessment & Plan Chart Review Chart Review: Acceptable Risk for Surgery and Patient NOT seen in Pre Admission Testing Consults Requested none ASA [id number] Proposed Anesthesia Anesthesia Type: Spinal Risk / Benefits Reviewed With: PT / POA / Parent / Guardian, Accepts Plan and Informed Consent Obtained History Surgery Operation Date: 09/20/21 16:50 Proposed Procedures p Section in LD - Reji Miranda MD Height/Weight Height: 5 ft 4 in Weight: 107.501 kg Allergies Allergy/AdvReac Type Severity Reaction Status Date / Time egg Allergy Severe SHORTNESS Verified 09/14/21 15:34 OF BREATH Iodinated Contrast Media Allergy Severe ANAPHYLAXIS Verified 09/14/21 15:34 onion Allergy Severe SHORTNESS Verified 09/14/21 15:34 OF BREATH shellfish derived Allergy Severe HIVES Verified 09/14/21 15:34 sumatriptan Allergy Severe ANAPHYLAXIS Verified 09/14/21 15:34 srikanth Allergy Intermediate RASH Verified 09/14/21 15:34 CILANTRO Allergy Intermediate SHORTNESS Uncoded 09/14/21 15:34 OF BREATH Medications Home Medications Medication Instructions Recorded Confirmed Last Taken PNV 153-FA 400 mcg-om3 35 mg-dha 2 tab PO BID 01/23/21 09/18/21 09/17/21 08:00 25 mg-epa 5 mg-fish oil chew tablet ( Gummies) acetaminophen 325 mg capsule 325 mg PO QID PRN 01/23/21 09/17/21 01/21/21 (Tylenol) cetirizine 10 mg tablet (Zyrtec) 10 mg PO PM 01/23/21 09/17/21 09/16/21 20:00 cyanocobalamin (vitamin B-12) 1,000 mcg PO QAM 01/23/21 09/17/21 09/17/21 08:00 1,000 mcg tablet fluticasone propionate 50 1 spray INTRANASAL DAILY PRN 01/23/21 09/17/21 09/17/21 08:00 mcg/actuation nasal spray,suspension polyethylene glycol 3350 17 gram 17 g PO DAILY PRN 01/23/21 09/18/21 09/17/21 08:00 oral powder packet (Miralax) aspirin 81 mg capsule 81 mg PO HS 09/14/21 09/17/21 09/15/21 20:00 bupropion HCl 150 mg 24 hr tablet, 150 mg PO QAM 09/14/21 09/17/21 09/17/21 08:00 extended release (Wellbutrin XL) magnesium oxide 400 mg PO QAM 09/14/21 09/17/21 09/17/21 08:00 labetalol 100 mg tablet 100 mg PO BID #30 tab 09/18/21 Unknown NPO Date Last Intake of Fluids: 09/20/21 Time Last Intake of Fluids: 14:00 Date Last Intake of Solids: 09/20/21 Time Last Intake of Solids: 10:30 Past Medical History Medical History Fibromyalgia GERD (gastroesophageal reflux disease) GERD with and had ulcer as child Hypertension hx of and no meds at present Hypothyroidism hx of and no meds at present morbid obesity Exercise / Class Metabolic Activity II 4-5 Yardwork/Stairs/Walk up hill Past Surgical History Surgical History History of incision and drainage age [age] in right ankle Hx of section Hx of tonsillectomy Past Anesthesia History No Hx of Anesthesia Complications and No Family Hx of Anesthesia Complications History of PONV No Hx of PONV and No Hx of Motion Sickness Social History Smoking Status: Never smoker Hx Alcohol Use: No Hx Substance Use: No substance use type: does not use Physical Exam Vital Signs Last Vital Signs Pulse 83 09/20/21 17:04 Pulse Ox 97 09/20/21 17:04 Constitutional + morbidly obese ENMT Mouth: no dentition abnormality Thyromental Distance: < 3.5 Finger Breadths Mallampati Class: II Neck normal visual inspection and trachea midline; neck extension not limited Respiratory normal respiratory effort Auscultation: lungs clear to auscultation bilaterally Cardiovascular Rate/Rhythm: regular rate and regular rhythm Heart Sounds: no murmur Vessels: no carotid bruit Musculoskeletal Spine: lumbar spine normal to inspection Extremities: extremities normal to inspection Neurologic moves all extremities Motor/Sensory: no sensory deficit Psychiatric Orientation: alert and oriented x 3 Testing Laboratory Results 09/20/21 17:12
[2021-09-20 18:04] LABS: Influenza A virus by PCR Negative (Neg); Influenza B virus by PCR Negative (Neg); RSV by PCR Negative (Neg); SARS CoV2 RNA(COVID-19) InHosp NEGATIVE (Negative)
[2021-09-20] MEDS ORDERED: OXYTOCIN 10 UNITS/ML 10ML VIAL ONE ×2 (18:54→20:00)
[2021-09-20] MEDS ORDERED: fentaNYL citrate 100 MCG/2 ML VIAL ONE (19:00)
[2021-09-20] MEDS ORDERED: MoRPHine SULFATE PF 1 MG/ML 10 ML AMP/VIAL ONE (19:01)
--- NOTE | 2021-09-20 20:35 | Operative Report ---
Post Operative Report Pre & Post Diagnosis Operation Date: 09/20/21 16:50 Pre-Op Diagnosis: 1. Spontaneous rupture of membranes 2. Repeat with bilateral tubal ligation Post-Op Diagnosis: 1. Spontaneous rupture of membranes 2. Repeat with bilateral tubal ligation 3. Delivery of live female child at 1944 I identified the patient and participated in the time-out.: Yes Procedure Operation Date: 09/20/21 16:50 Actual Procedures p Section in LD - Reji Miranda MD Surgeon Reji Miranda MD Sanitary Landfill Supervisor Dr. Chang Estimated Blood Loss 600 Findings Consistent with Post-Op Diagnosis live female Apgars 8/9 weight pending Fluids LR 1600 ml Specimens placenta cord blood for stem cell collection Drains Linn 100 ml. Complications none Disposition Accompanied Patient To Recovery: Yes Indications Term elective repeat and voluntary sterilization Description of Procedure see op note I attest to the content of the Intraoperative Record and any orders documented therein. Any exceptions are noted below.
[2021-09-20] MEDS ORDERED: PROMETHAZINE HCL 25 MG in SODIUM CHLORIDE 0.9% 50 ML IV PRN (20:45)
[2021-09-20] MEDS ORDERED: MoRPHine SULFATE PF 1 MG/ML 10 ML AMP/VIAL INT SPINAL ONE (20:45)
[2021-09-20] MEDS ORDERED: SODIUM CHLORIDE 0.9% 1000ML 1,000 ML IV SCH (20:45)
[2021-09-20] MEDS ORDERED: NALOXONE HCL 0.4 MG/1 ML VIAL/CARP IV PRN (20:45)
[2021-09-20] MEDS ORDERED: ONDANSETRON INJ 2 MG/ML 2 ML VIAL IV PRN (20:45)
[2021-09-20] MEDS ORDERED: NALOXONE HCL 0.08 MG in SYRINGE 1.8 ML IV PRN (20:45)
[2021-09-20] MEDS ORDERED: ePHEDrine sulfate 50 MG/ML AMP IV PRN (20:45)
[2021-09-20] MEDS ORDERED: DC INTRASPINAL MORPHINE SCH (20:45)
[2021-09-20] MEDS ORDERED: LACTATED RINGER'S 500 ML IV PRN (20:45)
[2021-09-20] MEDS ORDERED: NALOXONE HCL 1 MG in SODIUM CHLORIDE 0.9% 1000ML 1,000 ML IV PRN (20:45)
[2021-09-20] MEDS ORDERED: diphenhydrAMINE 50 MG/ML VIAL IV PRN (20:45)
[2021-09-20] MEDS ORDERED: NO NARCOTICS OR SEDATIVES SCH (20:45)
[2021-09-20] MEDS ORDERED: NON-FORMULARY MEDICATION (Pnv No.153-Fa-Om3-Dha-Epa-Fish [Prenatal Gummies] 400 mcg-35 mg- PO SCH (21:03)
[2021-09-20] MEDS ORDERED: SENNA 8.6 MG TAB PO PRN (21:03)
[2021-09-20] MEDS ORDERED: MAGNESIUM HYDROXIDE SUSP 30 ML UDC PO PRN (21:03)
[2021-09-20] MEDS ORDERED: BENZOCAINE 20% AER SPR 82.5 GM CAN EXT PRN (21:03)
[2021-09-20] MEDS ORDERED: FLUTICASONE PROPIONATE NA SPR 16 GM BTL PRN (21:03)
[2021-09-20] MEDS ORDERED: DIPHTHERIA/TETANUS/PERTUSSIS 0.5 ML SYR/VIAL IM ONE (21:03)
[2021-09-20] MEDS ORDERED: SUPERCREAM 0.870% 15 GM JAR EXT PRN (21:03)
[2021-09-20] MEDS ORDERED: HYDROCORTISONE ACETATE 25 MG SUPP PR PRN (21:03)
[2021-09-20] MEDS: LABETALOL HCL 100 MG TAB PO SCH (21:31)
[2021-09-20] MEDS: SIMETHICONE 80 MG CHEW PO SCH (21:31)
[2021-09-20] MEDS: DOCUSATE SODIUM 100 MG CAP PO SCH (21:31)
[2021-09-20] MEDS: NALBUPHINE HCL INJ 10 MG/ML AMP IV PRN ×2 (21:31→22:22)
[2021-09-20] MEDS ORDERED: Nursing to Pharmacy Communication SCH (21:45)
[2021-09-20] MEDS ORDERED: CETIRIZINE HCL 10 MG TABLET PO ONE (22:00)
--- NOTE | 2021-09-20 22:02 | Operative Report (OR) ---
DATE OF SURGERY: 09/20/2021 PREOPERATIVE DIAGNOSES: Term elective repeat section and voluntary sterilization. POSTOPERATIVE DIAGNOSES: Term elective repeat section and voluntary sterilization. PROCEDURE: Repeat section, low segment transverse and bilateral tubal ligation with Filshie clips. SURGEON: Reji Miranda MD. VEGETABLE LOADER: Hira Chang MD. ANESTHESIA: Spinal with Duramorph. CLINICAL HISTORY: The patient is a 41-year-old female, 6, para 1-0-4-1, admitted at 38 weeks and 5 days with spontaneous rupture of membranes, confirmed in the office. The patient was admitted to labor and delivery. COVID test was negative. Timeout was called prior to the start of procedure and Ancef was given for antibiotic preop. DESCRIPTION OF PROCEDURE: Under satisfactory spinal anesthesia, the patient was prepped and draped i n the usual sterile fashion, checked prior to the incision. A low Pfannenstiel incision through a pr ior incision carrying the incision down through the abdominal layers and successive layers without di fficulty. Upon entering into the peritoneal cavity, the uterus was noted to be dextrorotated. The peritoneal cavity was opened. Bladder flap was then made with sharp dissection using Metzenbaum scis sors. A low segment transverse incision over the lower uterine segment was made. The incision was widened in the AP diameter. The was then delivered from the vertex presentation with fundal pressure, delivering a live female, Apgars were 8 and 9 after the cord was clamped and cut. weight 7 po unds 4 ounces. No delay in cord clamping as the patient requested cord blood for stem cell. After the cord was isolated, the cord was cleaned with alcohol and then a needle was inserted and a bag of cor d blood for stem cells was then obtained. Following this, the placenta was then delivered spontaneou sly and intact. Uterus was then exteriorized. Ring forceps were then placed on both angles in the inferior margin, a nother ring used to dilate the cervix. Uterus was closed in a double layer closure starting with a 0 Vicryl suture in a continuous interlocking fashion followed by a second layer of 0 Vicryl suture imb ricating. Tubes and ovaries bilaterally were found to be within normal limits. The tubes were then identified and serially clamped with Filshie clips, 2 on each tube. After the procedure, the contents of the pe lvic cavity were then irrigated to clear. Uterus was then placed back into the normal anatomical pos ition in the normal fashion. The initial sponge, needle, and instrument counts were found to be kassi ect. The fascia was then reapproximated using 0 Vicryl suture from both ends in a continuous fashion. Sub cuticular space was irrigated, bleeders were cauterized. The subcuticular layer was closed with a 2- 0 plain suture interrupted followed by 4-0 Monocryl for the skin. Steri-Strips and Telfa were applie d to the wound. The patient tolerated the procedure well and final sponge, needle and instrument cou nts were found to be correct. EBL was 600 mL[address] Please note that [address] Chang was required to assist at due to a need for retraction and help with delivery of the baby and help with closure of the laparotomy incision. The patient was placed s upine on the stretcher and moved to recovery room in stable condition. Job ID: [id number]
[2021-09-20] MEDS: OXYTOCIN 30 UNITS in LACTATED RINGER'S 1,000 ML IV SCH (22:53)
--- NOTE | 2021-09-21 02:51 | Anesthesiology Progress Note ---
Date of Service September 21, 2021 Anesthesia Post Procedure Vital Signs Vital Signs: Temp Pulse Pulse Resp BP BP Pulse Ox 09/21/21 00:30 20 95 09/20/21 23:30 36.8 C 84 20 145/84 H 96 09/20/21 22:48 90 97 09/20/21 22:46 75 132/64 09/20/21 22:45 36.7 C 18 09/20/21 22:43 80 98 09/20/21 22:38 82 97 09/20/21 22:33 74 98 09/20/21 22:28 79 97 09/20/21 22:23 73 96 09/20/21 22:18 78 98 09/20/21 22:15 18 09/20/21 22:14 83 88 L 09/20/21 22:13 86 95 09/20/21 22:08 73 95 09/20/21 22:04 67 135/69 09/20/21 22:03 70 97 09/20/21 21:58 71 97 09/20/21 21:54 69 136/67 09/20/21 21:53 68 97 09/20/21 21:48 74 99 09/20/21 21:45 20 09/20/21 21:44 77 133/63 93 09/20/21 21:43 80 99 09/20/21 21:38 70 99 09/20/21 21:35 20 09/20/21 21:34 82 153/69 H 09/20/21 21:33 89 98 09/20/21 21:28 68 99 09/20/21 21:25 70 20 146/71 H 09/20/21 21:23 74 99 09/20/21 21:18 74 99 09/20/21 21:15 18 09/20/21 21:14 74 144/65 H 09/20/21 21:13 75 97 09/20/21 21:08 76 98 09/20/21 21:05 20 09/20/21 21:04 76 136/63 09/20/21 21:03 72 100 09/20/21 20:58 86 98 09/20/21 20:55 18 20 20:54 64 134/64 20 20:53 64 100 20 20:48 74 100 09/20/21 20:45 36.5 C 18 09/20/21 20:44 63 137/75 09/20/21 18:52 81 98 09/20/21 18:47 76 98 09/20/21 18:42 105 H 98 09/20/21 18:38 83 147/76 H 09/20/21 18:37 80 98 09/20/21 18:30 18 09/20/21 18:00 18 09/20/21 17:51 88 139/77 09/20/21 17:30 18 09/20/21 17:05 37.0 C 18 09/20/21 17:04 83 97 09/20/21 17:00 18 09/20/21 16:59 77 97 09/20/21 16:54 86 96 09/20/21 16:49 88 97 09/20/21 16:44 85 98 Pain Intensity Lower Medial Abdomen: Pain Intensity: 3 Transfer of Care Handoff Completed per policy Notes Mental Status: alert / awake / arousable Patient Amnestic to Procedure: Yes Nausea / Vomiting: adequately controlled Pain: adequately controlled Airway Patency, RR, SpO2: stable & adequate BP & HR: stable & adequate Hydration State: stable & adequate Neuraxial Anesthesia: was administered and sensory block is resolving Anesthetic Complications: no major complications apparent
[2021-09-21] MEDS: NALBUPHINE HCL INJ 10 MG/ML AMP IV PRN (03:47)
[2021-09-21] MEDS: KETOROLAC 30 MG/ML VIAL IV PRN ×2 (04:39→14:16)
[2021-09-21 06:08] LABS: Basophils # (auto) 0.01 K/uL (0-0.2); Basophils % (auto) 0.1 %; Eosinophils # (auto) 0.06 K/uL (0-0.5); Eosinophils % (auto) 0.5 %; Hematocrit (blood only) 25.5 % (37-47); Hemoglobin 8.6 g/dL (12.0-16.0); Immature Granulocytes # (auto) 0.07 K/uL (0.00-0.02); Immature Granulocytes % (auto) 0.6 %; Lymphocytes # (auto) 2.22 K/uL (1.2-3.4); Lymphocytes % (auto) 19.2 %; Mean Corpuscular Hemoglobin 29.3 pg (25-34); Mean Corpuscular Hgb Conc 33.7 g/dL (32-36); Mean Corpuscular Volume 86.7 fL (80-100); Mean Platelet Volume 9.4 fL (7.4-10.4); Monocytes # (auto) 0.74 K/uL (0.11-0.59); Monocytes % (auto) 6.4 %; Neutrophils # (auto) 8.47 K/uL (1.4-6.5); Neutrophils % (auto) 73.2 %; Platelet Count 192 K/uL (130-400); RDW Coefficient of Variation 15.9 % (11.5-14.5); RDW Standard Deviation 49.9 fL (36.4-46.3); Red Blood Count 2.94 M/uL (4.2-5.4); White Blood Count 11.57 K/uL (4.8-10.8)
[2021-09-21] MEDS: OXYTOCIN 30 UNITS in LACTATED RINGER'S 1,000 ML IV SCH (07:38)
[2021-09-21] MEDS: PRENATAL VITAMIN 1 TAB PO SCH (08:25)
[2021-09-21] MEDS: FERROUS SULFATE 325 MG TAB PO SCH (08:25)
[2021-09-21] MEDS: DOCUSATE SODIUM 100 MG CAP PO SCH ×2 (08:25→20:40)
[2021-09-21] MEDS: buPROPion XL 150 MG TABCR PO SCH (08:26)
[2021-09-21] MEDS: MAGNESIUM OXIDE 400 MG TAB PO SCH (08:26)
[2021-09-21] MEDS: SIMETHICONE 80 MG CHEW PO SCH ×4 (08:26→20:41)
[2021-09-21] MEDS: LABETALOL HCL 100 MG TAB PO SCH ×2 (08:26→20:41)
--- NOTE | 2021-09-21 10:44 | Obstetrical Progress Note ---
Date of Service September 21, 2021 Assessment & Plan Admission and Anticipated Discharge Date Admission Date: September 20, 2021 Subjective Patient is seen and examined. She feels well, no complaints. Pain is under control with oral meds. Not OOB yet Tolerating regular diet with out N&V Flatus + Bleeding is minimal No fever/ chills/ CP/ SOB/ N&V/ Leg pain Breast feeding without problems Vital Signs Temp Pulse Pulse Pulse Resp BP BP 09/21/21 09:40 18 09/21/21 08:31 18 09/21/21 07:30 18 09/21/21 07:13 37.1 C 77 18 102/67 09/21/21 06:20 20 09/21/21 05:29 20 09/21/21 04:30 20 09/21/21 03:25 37.0 C 79 20 114/74 09/21/21 02:30 20 09/21/21 01:30 20 09/21/21 00:30 20 09/20/21 23:30 36.8 C 84 20 145/84 H 09/20/21 22:48 90 09/20/21 22:46 75 132/64 09/20/21 22:45 36.7 C 18 Pulse Ox 09/21/21 09:40 96 09/21/21 08:31 96 09/21/21 07:30 97 09/21/21 07:13 97 09/21/21 06:20 95 09/21/21 05:29 95 09/21/21 04:30 96 09/21/21 03:25 95 09/21/21 02:30 95 09/21/21 01:30 95 09/21/21 00:30 95 09/20/21 23:30 96 09/20/21 22:48 97 09/20/21 22:46 09/20/21 22:45 Intake & Output 09/20/21 09/21/21 09/21/21 22:59 06:59 14:59 Intake Total 1550 / 2553 1003 / 2553 Output Total 850 / 1100 250 / 1100 Balance 700 / 1453 753 / 1453 Weight 107.501 kg Intake: IV 1003 / 1003 Oxytocin 30 units In Lactated 1003 / 1003 Ringer's 1,000 ml @ 125 mls/hr IV .Q8H2M [facility], [facility] Rx#:[id number] IV Perioperative 1550 / 1550 Output: Urine 75 / 75 Estimated Blood Loss 600 / 600 Urine Amount (Catheter) 175 / 425 250 / 425 Linn/Indwelling 175 / 425 250 / 425 Other: Weight Measurement Method Stated by Patient PE: General: Alert, orientedx3, NAD CVS: S1S2 RRR Lungs; CTAB Abd: soft, NT, ND, BS+, fundus firm, below Umbilicus Incision: Clean, dry, intact Perineum intact, Lochia rubra minimal Ext; NT, no edema AP: 41 yo s/p C Section, pod# 1 VSS Afebrile doing well Continue routine postop care Encourage ambulation, PO intake All questions were answered Results & Data ([facility]) Vital Signs (Past 12 Hours) Vital Signs Temp Pulse Pulse Pulse Resp BP BP 09/21/21 09:40 18 09/21/21 08:31 18 09/21/21 07:30 18 09/21/21 07:13 37.1 C 77 18 102/67 09/21/21 06:20 20 09/21/21 05:29 20 09/21/21 04:30 20 09/21/21 03:25 37.0 C 79 20 114/74 09/21/21 02:30 20 09/21/21 01:30 20 09/21/21 00:30 20 09/20/21 23:30 36.8 C 84 20 145/84 H 09/20/21 22:48 90 09/20/21 22:46 75 132/64 09/20/21 22:45 36.7 C 18 09/20/21 22:43 80 Pulse Ox 09/21/21 09:40 96 09/21/21 08:31 96 09/21/21 07:30 97 09/21/21 07:13 97 09/21/21 06:20 95 09/21/21 05:29 95 09/21/21 04:30 96 09/21/21 03:25 95 09/21/21 02:30 95 09/21/21 01:30 95 09/21/21 00:30 95 09/20/21 23:30 96 09/20/21 22:48 97 09/20/21 22:46 09/20/21 22:45 09/20/21 22:43 98
[2021-09-21] MEDS ORDERED: KETOROLAC 30 MG/ML VIAL IV PRN (14:46)
[2021-09-21] MEDS ORDERED: diphenhydrAMINE 50 MG/ML VIAL IV PRN (14:46)
[2021-09-21] MEDS ORDERED: diphenhydrAMINE Capsule 25 MG CAP PO PRN (14:46)
[2021-09-21] MEDS ORDERED: ONDANSETRON INJ 2 MG/ML 2 ML VIAL IV PRN (14:46)
[2021-09-21] MEDS ORDERED: MEPERIDINE HCL 50 MG/ML CARP IV PRN (14:46)
[2021-09-21] MEDS ORDERED: PROMETHAZINE HCL 25 MG in SODIUM CHLORIDE 0.9% 50 ML IV PRN (14:46)
[2021-09-21] MEDS ORDERED: bisacodyL 5 MG TABEC PO SCH (20:00)
[2021-09-21] MEDS: IBUPROFEN 600 MG TAB PO PRN (20:40)
[2021-09-21] MEDS: oxyCODONE/ACETAMINOPHEN 5mg/325mg TAB PO PRN (20:40)
[2021-09-21] MEDS ORDERED: CETIRIZINE HCL 10 MG TABLET PO SCH (21:00)
[2021-09-22] MEDS: IBUPROFEN 600 MG TAB PO PRN ×3 (00:19→07:42)
[2021-09-22] MEDS: oxyCODONE/ACETAMINOPHEN 5mg/325mg TAB PO PRN ×3 (00:19→07:42)
[2021-09-22] MEDS: FERROUS SULFATE 325 MG TAB PO SCH (07:42)
[2021-09-22] MEDS: SIMETHICONE 80 MG CHEW PO SCH (07:42)
[2021-09-22] MEDS: PRENATAL VITAMIN 1 TAB PO SCH (07:43)
[2021-09-22] MEDS: DOCUSATE SODIUM 100 MG CAP PO SCH (07:43)
[2021-09-22] MEDS: LABETALOL HCL 100 MG TAB PO SCH (08:26)
[2021-09-22] MEDS: MAGNESIUM OXIDE 400 MG TAB PO SCH (08:26)
[2021-09-22] MEDS: buPROPion XL 150 MG TABCR PO SCH (08:26)
[2021-09-22 08:42] LABS: Hematocrit (blood only) 26.1 % (37-47); Hemoglobin 8.7 g/dL (12.0-16.0)
--- NOTE | 2021-09-22 09:47 | Obstetrical Progress Note ---
Date of Service September 22, 2021 Assessment & Plan (1) delivery delivered: Day #2 pt doing well wishes to be disch home Subjective Ambulation: ambulating normally Voiding: no voiding problems Passing Gas:: Yes Diet Tolerance:: clear liquids Lochia:: Small Feeding Type:: breast feeding Review of Systems All systems reviewed & are unremarkable except as noted in HPI & below Physical Exam Constitutional WD/WN, vitals as above well developed and well nourished Eyes PERRL, conjunctivae normal, anicteric sclerae ENMT external ear and nose normal, oropharynx normal Neck trachea midline, no thyromegaly Respiratory normal respiratory effort, lungs clear to auscultation Cardiovascular RRR, no murmur, no edema Chest (Breasts) normal inspection/palpation of breasts Gastrointestinal (Abdomen) normal bowel sounds, soft, nontender, no hepatosplenomegaly Musculoskeletal no cyanosis or clubbing, extremities motor strength 5/5 Skin no rashes, warm and dry + incision (Clean,dry and intact) Neurologic patellar DTR's 2+ bilat, sensation intact Psychiatric A+Ox3, euthymic affect Genitourinary normal external appearance Lymphatic no cervical or axillary lymphadenopathy Results & Data ([facility]) Vital Signs (Past 12 Hours) Vital Signs Temp Pulse Resp BP Pulse Ox 09/22/21 08:23 73 139/85 09/22/21 07:26 36.9 C 82 18 126/84 97 09/22/21 00:10 36.6 C 81 18 116/76
[2021-09-22] MEDS ORDERED: bisacodyL 10 MG SUPP PR PRN (20:44)
--- NOTE | 2021-09-29 14:06 | Discharge Summary (DS) ---
DATE OF ADMISSION: 09/20/2021 DATE OF DISCHARGE: 09/22/2021 DATE OF PROCEDURE: 09/20/2021 REASON FOR ADMISSION AND HOSPITAL COURSE: The patient is a 41-year-old G6, P1-0-4-1, admitted at 30 weeks and 5 days with spontaneous rupture of membranes, confirmed in the office. The patient was mihaela kannan for COVID, which was negative. She underwent a repeat section and a tubal ligation with out difficulty. The patient was subsequently discharged home on the second postoperative day in stab le condition. Home going instructions were given. Outcome of procedure was a live female, Apgars were 8 and 9, weight 7 pounds 4 ounces. Regular diet on discharge. Condition on discharge is stable. Follow up in the office in 1 week for incision check. Job ID: [id number]
== END 2021-09-22 12:26 | disposition home or self-care (01) | DRG 785 ==
LOC: OPB 16:41 → 4S1 16:43 → 4S2 23:30